=== PATIENT | female | born 1945 | race Caucasian/White ===

== ENCOUNTER 2018-06-30 05:36 | Day surgery (SDC) | payer OTHER ==
--- NOTE | 2018-06-29 15:08 | GHP ---
DATE OF ADMISSION: 06/30/2018 CURRENT COMPLAINT: Right shoulder pain. HISTORY OF PRESENT ILLNESS: The patient is a 72-year-old female with a several-month history of righ t shoulder pain worsening with use and with time despite multiple conservative measures. ALLERGIES: Include anti-inflammatories. CURRENT MEDICATIONS: Include acyclovir, diazepam, gabapentin, levothyroxine, liothyronine, lisinopri l with HCTZ, oxybutynin, tramadol, venlafaxine. PRIOR MEDICAL PROBLEMS,: Include cancer, high blood pressure, and thyroid problems. PRIOR SURGERY: Included Mohs surgery, spine surgery, hysterectomy, cataract, gastric bypass, and russell endectomy. SOCIAL HISTORY: She has never been a smoker. She is a social drinker. PHYSICAL EXAMINATION: HEENT: Pupils equal, round, and reactive to light. CHEST: Clear to ausculta tion. HEART: Regular rate and rhythm. ABDOMEN: Soft and nontender. EXTREMITIES: Right shoulder exam reveals decreased range of motion on forward flexion, external rotation with weakness to externa l rotation, and supraspinatus test. IMAGING: MRI reveals anterior acromial curve and hook with biceps tendinopathy, posterior labral tea r, AC osteoarthritis, and adhesive capsulitis. 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 Plan is to take her to the operating room to undergo a right shoulder scope with subacromial decompre ssion, AC resection possible rotator cuff repair, and possible biceps tenodesis. . /[id number]/MODL
[2018-06-30] MEDS ORDERED: ceFAZolin 2 GM/DEXTROSE 100 ML IV ONE (05:46)
[2018-06-30] MEDS ORDERED: LR 1,000 ML IV SCH (05:46)
[2018-06-30] MEDS ORDERED: EPINEPHrine 1 MG/ML INJ ONE (06:39)
[2018-06-30] MEDS ORDERED: BUPIVACAINE/EPI 0.5% 30 ML SDV ONE (06:39)
[2018-06-30] MEDS ORDERED: DEXAMETHASONE 4 MG/ML VIAL IVP PRN (07:00)
[2018-06-30] MEDS ORDERED: ONDANSETRON 4 MG/2 ML VIAL IVP PRN ×2 (07:00→09:26)
[2018-06-30] MEDS ORDERED: NALOXONE HCL 0.4 MG/ML INJ IVP PRN (07:00)
[2018-06-30] MEDS ORDERED: oxyCODONE IR 5 MG TAB PO PRN (07:00)
[2018-06-30] MEDS ORDERED: MIDAZOLAM 2 MG/2 ML VIAL IVP ONE (07:00)
[2018-06-30] MEDS ORDERED: HYDROmorphONE/DILAUDID 2 MG/ML INJ IVP PRN (07:00)
[2018-06-30] MEDS ORDERED: ALBUTEROL 3 ML DEYVIAL IH PRN (07:00)
[2018-06-30] MEDS ORDERED: MIDAZOLAM 2 MG/2 ML VIAL ONE (07:02)
--- NOTE | 2018-06-30 07:08 | PDANEPAE ---
ANE History of Present Illness R Shoulder ANE Past Medical History - Cardiovascular History Hx Hypertension: Yes Hx Arrhythmias: No Hx Chest Pain: No Hx Coronary Artery / Peripheral Vascular Disease: No Hx CHF / Valvular Disease: No Hx Palpitations: No Cardiovascular History Comment: SLIGHT MURMUR - Pulmonary History Hx COPD: No Hx Asthma/Reactive Airway Disease: No Hx Recent Upper Respiratory Infection: No Hx Oxygen in Use at Home: No Hx Sleep Apnea: No Sleep Apnea Screening Result - Last Documented: Negative - Neurologic History Hx Cerebrovascular Accident: No Hx Seizures: No Hx Dementia: No - Endocrine History Hx Diabetes: No - Renal History Hx Renal Disorders: No - Liver History Hx Hepatic Disorders: No - Neurological & Psychiatric Hx Hx Neurological and Psychiatric Disorders: Yes Neurological / Psychiatric History Comment: ALTERED SENSATION LOWER RIGHT LEG. DEPRESSION - Cancer History Hx Cancer: Yes Cancer History Comment: BREAST CA - Congenital Disorder History Hx Congenital Disorders: No - GI History Hx Gastrointestinal Disorders: Yes Gastrointestinal History Comment: COLLAGENOUS COLITIS NOT A PROBLEM X 4 YRS - Other Health History Other Health History: NONE - Chronic Pain History Chronic Pain: No - Surgical History Prior Surgeries: RIGHT SHOULDER SCOPE. BROKEN NECK C1-2 FX FUSED. L4-5 FUSION. R BREAST MARKERS/CLIPS ANE Review of Systems Review of Systems: - Exercise capacity METS (RN): 4 METS ANE Patient History - Allergies Allergies/Adverse Reactions: NSAIDS (Non-Steroidal Anti-Inflamma Allergy (Unknown, Verified 06/26/18 16:05) Other-Enter Comments - Home Medications Home Medications: Acetaminophen [Tylenol ES 500 mg (*)] 1,000 mg PO Q6 PRN 06/26/18 [Last Taken 18:00] Acyclovir [Zovirax 400 mg (*)] 400 mg PO DAILY 06/26/18 [Last Taken 06/29/18] Calcium Carb W/Vit D [Calcium Carb W/Vit D 500/200 (*)] 1 each PO DAILY [Last Taken 06/29/18] Cholecalciferol Vit D3 [Vitamin D3 2000 units tab (OTC)] 2,000 units PO DAILY [Last Taken 06/29/18] Cyanocobalamin [Vitamin B12 (*)] 2,000 mcg PO DAILY 06/26/18 [Last Taken ] Diazepam [Valium 2 MG (*)] 2 mg PO TID 06/26/18 [Last Taken 06/29/18 12:00] Ferrous Sulfate [Ferrous Sulf 325 MG (*)] 325 mg PO DAILY 06/26/18 [Last Taken 06/29/18] Gabapentin [Neurontin 300 MG (*)] 600 mg PO TID 06/26/18 [Last Taken 06/30/18] Herbals/Supplements -Info Only 1 ea PO DAILY 06/26/18 [Last Taken 06/29/18] Levothyroxine [Synthroid 75 mcg (*)] 75 mcg PO DAILY06 06/26/18 [Last Taken ] Liothyronine Sodium [Cytomel 5 mcg (*)] 5 mcg PO DAILY 06/26/18 [Last Taken ] Lisinopril/Hydrochlorothiazide [Zestoretic 20-25 mg Tablet] 0.5 each PO DAILY [Last Taken 06/29/18] Venlafaxine Xr [Effexor Xr] 150 mg PO DAILY 06/26/18 [Last Taken 06/29/18] - NPO status NPO Since - Liquids (Date): 06/30/18 NPO Since - Liquids (Time): 04:30 NPO Since - Solids (Date): 06/29/18 NPO Since - Solids (Time): 18:00 - Smoking Hx Smoking Status: Never smoked - Family Anes Hx Family Hx Anesthesia Complications: NONE ANE Labs/Vital Signs - Labs Result Diagrams: 06/30/18 06:16 - Vital Signs Blood Pressure: 118/58 Heart Rate: 63 Respiratory Rate: 16 O2 Sat (%): 97 Height: 160.02 cm Weight: 71.668 kg ANE Physical Exam - Airway Neck exam: FROM Mallampati Score: Class 2 Mouth exam: normal dental/mouth exam - Pulmonary Pulmonary: clear to auscultation - Cardiovascular Cardiovascular: regular rate and rhythym - ASA Status ASA Status: II ANE Anesthesia Plan Anesthesia Plan: general endotracheal anesthesia Regional Anesthesia: interscalene BP NB
--- NOTE | 2018-06-30 07:10 | PDHPUP ---
History & Physical Update H&P update statement: This history and physical update is based on an assessment of the patient which was completed after admission or registration (within 24 hours), but prior to the surgery/procedure. H&P update: H&P reviewed & patient examined, no change in patient's condition since H&P completed
[2018-06-30] MEDS ORDERED: fentaNYL 100 MCG/2 ML INJ ONE (07:12)
[2018-06-30] MEDS ORDERED: PROPOFOL 200 MG/20 ML VIAL ONE (07:12)
[2018-06-30] MEDS ORDERED: DEXAMETHASONE 4 MG/ML VIAL ONE (09:04)
[2018-06-30] MEDS ORDERED: ONDANSETRON 4 MG/2 ML VIAL ONE (09:04)
--- NOTE | 2018-06-30 09:18 | POSTANESTH ---
Post Anesthetic Evaluation Cardiovascular Status: Normal, Stable Respiratory Status: Normal, Stable Level of Consciousness/Mental Status: Can Participate in Eval, Mildly Sleepy, Arousable Pain Control: Adequate, Prn Tx Ordered Nausea/Vomiting Control: Adequate, Prn Tx Ordered Complications Possibly Related to Anesthesia: None Noted
[2018-06-30] MEDS ORDERED: HYDROCODONE/APAP 5/325 TAB PO PRN (09:26)
[2018-06-30] MEDS ORDERED: OXYCODONE/APAP 5/325 TAB PO PRN (09:26)
--- NOTE | 2018-06-30 09:26 | POSTOPPROG ---
Post Op Note Date of Operation: 06/30/18 Surgeon: Dolly Mejias Can Repairer: coltrain Anesthesia: GET(General Endotracheal), Other (Specify) Pre-op Diagnosis: r shoulder fifosis with impingement/bicep tear/ac-oa Procedure: r shoulder STAR w/ SDA/AC resection/ debride bicep stump/rc/labrum Inf/Abcess present in the surg proc area at time of surgery?: No Depth: Deep Incisional (Fascial) EBL: 50-100
--- NOTE | 2018-06-30 10:28 | GOP ---
[f rep st] OPERATIVE REPORT DATE OF OPERATION: 06/30/2018 SURGEON: Dolly Mejias MD ACCOUNTANT MANAGER: Randy Hall, Certified SA, whose presence was medically necessary. ANESTHESIA: LMA plus scalene nerve block per surgeon's request. PREOPERATIVE DIAGNOSIS: Right shoulder fibrosis with impingement syndrome, acromioclavicular osteoar thritis, biceps tendinopathy, labral tear. POSTOPERATIVE DIAGNOSIS: Right shoulder fibrosis with impingement syndrome, acromioclavicular osteoa rthritis, biceps tendinopathy, labral tear. PROCEDURE PERFORMED: Right shoulder manipulation under anesthesia with right shoulder scope with trent ridement of biceps stump, the rotator cuff, and labrum with subacromial decompression, and arthroscop ic acromioclavicular resection. FINDINGS: INDICATIONS: This is a 72-year-old female, who has a several-month history of right shoulder pain wo rsening with use with time despite multiple conservative measures. She wishes to have surgery in ord er to resolve the problem. DESCRIPTION OF PROCEDURE: Patient brought to the operating room after the right side had been identi fied as the correct side by the patient, nurse, and physician. Once in the operating room, she was g iven a scalene block on the right side and then placed under general anesthesia using LMA. Once asle ep, she was placed in a beach chair position with the right upper extremity sterilely prepped and neto ped in the usual fashion using GSI solution. Once prepped and draped, the shoulder was brought throu gh range of motion to include full flexion, external rotation, abduction, and internal rotation. Onc e completed, an incision was made off the posterolateral corner of the acromion where the camera was introduced without difficulty. Inspection of the joint revealed tearing of the labrum of the anterio r, superior, and posterior portions as well as a biceps stump that was hanging into the glenohumeral joint. Therefore, using an in to out technique, an anterior portal was made superolateral to the cor acoid process with a 6 x 75 mm threaded cannula placed through the anterior portal and a 3.5 mm kofi h shaver was used to remove the bulk of the biceps tendon as it was caught inside the joint as well a s removing and debriding the torn portions of the labrum and the fragmented portions of the rotator c uff. Once completed, all instruments were removed from the shoulder joint and using the same portal sites, reintroduced into the subacromial space. A second incision was made 2 cm lateral to the acrom ial process in line with the posterior cortex of the clavicle where the camera was switched to a late ral portal, alternating with using arthroscopic Bovie tip and a shaver, was used to remove the soft t issue of the undersurface of the acromion as well as the abundant amount of bursa within the subacrom ial space. She was noted to have a long subacromial curve and an acromionizer bur was brought throu gh the posterior portal and used to remove that curve until achieving a flat ceiling, removing approx imately 5 mm of bone. Attention was then turned to the distal clavicle, which was noted to have a sh ort, sharp inferior spur, and this was also removed using a combination of a shaver bur, removing russell roximately 6 mm of bone. Once finished, an 18-gauge spinal needle was placed into the AC joint and a n incision was made directly over the posterior portion of the AC joint where the camera was introduc ed into the AC joint noting osteoarthritic changes of the distal end of the clavicle. The camera was switched back to a lateral portal, and alternating, using a shaver and a bur, was used to remove the bone of the distal end of the clavicle and a portion of the medial portion of the acromion. Once co mpleted, a probe was used to ensure an adequate amount of bone had been removed. Once finished, all instruments were removed from the shoulder with 30 cc of Marcaine infused in the subacromial space. The 4 portal sites were closed using 3-0 nylon suture in a [id number] type stitch. The wounds w ere dressed with Xeroform, 4 x 4, and Tegaderm. She was completely undraped in the operating room, h ad a sling placed on the right upper extremity. She was then woken up, extubated, transferred onto a stretcher, and sent to recovery room in good condition. /[id number]/MODL
[2018-06-30 11:57] VITALS: BP 111/60
== END 2018-06-30 11:55 | disposition home or self-care (01) ==
LOC: FSGY 05:36
PROVIDERS: ATTEND Orthopaedic Surgery
DX: M25.811 Other specified joint disorders, right shoulder (principal); M19.011 Primary osteoarthritis, right shoulder; E07.9 Disorder of thyroid, unspecified; Z98.84 Bariatric surgery status; Z98.1 Arthrodesis status
CPT/HCPCS: J0171; J0690; J1100; J2250; J2405; J2704; J3010